=== PATIENT | female | born 1955 | race Caucasian/White ===

== ENCOUNTER 2016-09-25 14:34 | Emergency (ER) | payer OTHER ==
[~2016-09-25] VITALS: Ht 167.6 cm; Wt 100.0 kg
[2016-09-25 14:37] VITALS: BP 145/104; PULSE 102; RESP 15; TEMP 98; O2SAT 96
--- NOTE | 2016-09-25 14:48 | PD ---
Physical Exam Date Seen by Provider: September 25, 2016 Time Seen by Provider: 14:46 Narrative Pt states she fell yesterday injuring her left arm. Pt states her wrist, forearm , and elbow pain. She states she cant move her fingers well. Pain radiates to her neck. Pain is a 10/10 with movement. VSS, awaiting bed placement. Pt subsequently states she has chest pain radiating to her back and shoulder, diaphoresis., SOB. Data Data Last Documented VS Vital Signs Date Time Temp Pulse Resp B/P Pulse Ox O2 Delivery O2 Flow Rate FiO2 09/25/16 14:37 98.0 102 15 145/104 96 MDM Supervised Visit with TACOS: Keily Renee September 25, 2016 14:48
[2016-09-25] MEDS ORDERED: ACETAMINOPHEN/HYDROcodone 325 MG/10 MG TAB PO ONE (16:00)
--- NOTE | 2016-09-25 16:15 | RADRPT ---
EXAM DATE/TIME: 09/25/2016 15:27 [facility] COMPARISON: No previous studies available for comparison. INDICATIONS : Trauma, fall, left wrist pain, limited ROM MEDICAL HISTORY : None. SURGICAL HISTORY : None. ENCOUNTER: Initial ACUITY: 2 days PAIN SCORE: 8/10 LOCATION: Left Wrist FINDINGS: Three view examination of the left wrist demonstrates soft tissue swelling without dislocation, or fr acture. The carpal bones are in normal alignment. The joint spaces are maintained. Bony mineraliza tion is normal. CONCLUSION: Soft tissue swelling without fracture. Cortes Gifford MD on September 25, 2016 at 16:13 Board Certified Radiologist. This report was verified electronically.
--- NOTE | 2016-09-25 16:16 | RADRPT ---
EXAM DATE/TIME: 09/25/2016 15:29 [facility] COMPARISON: No previous studies available for comparison. INDICATIONS : Trauma, left arm pain, fall, limited ROM MEDICAL HISTORY : None. SURGICAL HISTORY : None. ENCOUNTER: Initial ACUITY: 2 days PAIN SCORE: 8/10 LOCATION: Left arm FINDINGS: Two view examination of the left forearm demonstrates no evidence of fracture or dislocation. Bony m ineralization is normal. The soft tissue structures are intact. CONCLUSION: No acute fracture. Cortes Gifford MD on September 25, 2016 at 16:13 Board Certified Radiologist. This report was verified electronically.
--- NOTE | 2016-09-25 16:17 | RADRPT ---
EXAM DATE/TIME: 09/25/2016 15:31 [facility] COMPARISON: No previous studies available for comparison. INDICATIONS : Trauma, left elbow pain, limited ROM MEDICAL HISTORY : None. SURGICAL HISTORY : None. ENCOUNTER: Initial ACUITY: 2 days PAIN SCORE: 8/10 LOCATION: Left elbow FINDINGS: Multiple view examination of the left elbow demonstrates abnormal articulation of the distal humerus with the olecranon with slight subluxation. Suspected fracture. There is a joint effusion. Soft tiss ue swelling Bony mineralization is normal. CONCLUSION: Subluxation of the elbow joint with effusion and suspected fracture. Cortes Gifford MD on September 25, 2016 at 16:14 Board Certified Radiologist. This report was verified electronically.
--- NOTE | 2016-09-25 16:19 | RADRPT ---
EXAM DATE/TIME: 09/25/2016 15:44 [facility] COMPARISON: No previous studies available for comparison. INDICATIONS : TRAUMA, LEFT SHOULDER PAIN, FALL, LIMTITED ROM MEDICAL HISTORY : None. SURGICAL HISTORY : None. ENCOUNTER: Initial ACUITY: 2 days PAIN SCORE: 8/10 LOCATION: Left SHOULDER FINDINGS: Two view examination of the left shoulder demonstrates no evidence of fracture or dislocation. There are degenerative changes. Bony mineralization is normal. CONCLUSION: Degenerative change without fracture. Cortes Gifford MD on September 25, 2016 at 16:16 Board Certified Radiologist. This report was verified electronically.
[2016-09-25 16:35] VITALS: BP 150/90; PULSE 87; RESP 15; O2SAT 96
--- NOTE | 2016-09-25 16:35 | RADRPT ---
EXAM DATE/TIME: 09/25/2016 15:23 [facility] COMPARISON: No previous studies available for comparison. INDICATIONS : Chest pain after falling MEDICAL HISTORY : None. SURGICAL HISTORY : None. ENCOUNTER: Initial ACUITY: 2 days PAIN SCORE: 5/10 LOCATION: Left chest FINDINGS: PA and lateral views of the chest demonstrate the lungs to be symmetrically aerated without evidence of mass, infiltrate or effusion. The cardiomediastinal contours are unremarkable. Osseous structure s are intact. CONCLUSION: 1. No active disease. Minimal basilar atelectasis or scarring. Van Baptiste MD on September 25, 2016 at 16:31 Board Certified Radiologist. This report was verified electronically.
[2016-09-25 16:36] LABS: AUTOMATED NEUTROPHIL # 5.3 TH/MM3 (1.8-7.7); BASOPHIL % 0.6 % (0.0-2.0); EOSINOPHIL # 0.2 TH/MM3 (0-0.4); HEMATOCRIT 40.1 % (35.0-46.0); HEMO FLAGS DIFF FINAL; LYMPH % 21.8 % (9.0-44.0); LYMPHOCYTE # 1.8 TH/MM3 (1.0-4.8); MEAN CELL VOLUME 90.1 FL (80.0-100.0); MEAN CORPUSCULAR HEMOGLOBIN 31.2 PG (27.0-34.0); MEAN CORPUSCULAR HGB CONC 34.6 % (32.0-36.0); MONO % 8.8 % (0.0-8.0); NEUT % 65.8 % (16.0-70.0); PLATELET COUNT 308 TH/MM3 (150-450); RED BLOOD COUNT 4.45 MIL/MM3 (4.00-5.30); RED CELL DISTRIBUTION WIDTH 13.1 % (11.6-17.2)
[2016-09-25 16:40] LABS: APTT (PATIENT) 28.5 SEC (24.3-30.1); PROTHROMBIN TIME - PATIENT 10.9 SEC (9.8-11.6)
[2016-09-25 16:44] LABS: ANION GAP 8 MEQ/L (5-15); BLOOD UREA NITROGEN 9 MG/DL (7-18); CHLORIDE 102 MEQ/L (98-107); GLOMERULAR FILTRATION RATE 54 ML/MIN (>89); MAGNESIUM 2.3 MG/DL (1.5-2.5); POTASSIUM 3.6 MEQ/L (3.5-5.1); SODIUM (NA) 138 MEQ/L (136-145)
[2016-09-25 16:47] LABS: CREATINE KINASE 301 U/L (26-192)
[2016-09-25 16:59] LABS: CKMB 1.1 NG/ML (0.5-3.6)
[2016-09-25] MEDS ORDERED: PROPOFOL 200 MG/20 ML AMP IV ONE (17:00)
--- NOTE | 2016-09-25 17:18 | PD ---
HPI Chief Complaint: Fall Time Seen by Provider: 17:14 Travel History International Travel<30 days: No Contact w/Intl Traveler<30days: No Traveled to known affect area: No History of Present Illness HPI 61-year-old female that presents to the ED for evaluation of fall. Per patient she tripped and fell yesterday. Per patient she has about ankle on the right side that sometimes gives out on her. Per patient she fell on the curb and landed on her left side. The patient most of her pain is in her shoulder and elbow. Patient states having bruising on her right hand that this doesn't really bother her at all. She also injured her left knee with a bruise in it but she is able to walk and has no difficulty with it. No back pain or neck pain. She also states that for the past any fracture she's been having midsternal pain on the chest that radiates to the back. Per patient this started after the fall. She denies any history of heart disease. No shortness of breath but does get worse with deep breaths. Allergy to penicillin. She has not taken anything for this. Per patient the pain especially on the elbow is 7 out of 10 and she has difficulty moving the elbow. She states that she has difficulty moving the finger secondary to the elbow. Denies any numbness, tilling, weakness. No blood thinners. No head injury or loss of consciousness reported. PFSH Past Surgical History Hysterectomy: Yes (PARTIAL) Social History Alcohol Use: No Tobacco Use: No Substance Use: No Allergies-Medications (Allergen,Severity, Reaction): Coded Allergies: Penicillin (Verified Allergy, Severe, SWELLING,VISUAL DISTURBANCE,CHEST PAIN, 09/25/16) Reported Meds & Prescriptions Reported Meds & Active Scripts Active Review of Systems Except as stated in HPI: all other systems reviewed are Neg Physical Exam Narrative GENERAL: SKIN: Warm and dry. HEAD: Atraumatic. Normocephalic. EYES: Pupils equal and round. No scleral icterus. No injection or drainage. ENT: No nasal bleeding or discharge. Mucous membranes pink and moist. Tongue is midline. No uvula deviation. NECK: Trachea midline. No JVD. CARDIOVASCULAR: Regular rate and rhythm. No murmurs, S3, S4. RESPIRATORY: No accessory muscle use. Clear to auscultation. Breath sounds equal bilaterally. GASTROINTESTINAL: Abdomen soft, non-tender, nondistended. Hepatic and splenic margins not palpable. MUSCULOSKELETAL: Extremities without clubbing, cyanosis, or edema. No obvious deformities. Full range of motion of the right upper and bilateral lower leg extremities. Patient does have an abrasion and swelling and bruising on the left knee But able to move it fully. Ambulating with no issues. 2+ pulses bilaterally in the upper and lower extremities. No lumbar, thoracic, cervical spine tenderness to palpation. Patient does have some deformity noted to the left elbow. Patient cannot completely flex or extend it without discomfort. No obvious bony deformity noted however. Full range of motion of the fingers. Good capillary refill. Sensation intact bilaterally. No obvious wrist deformity noted. No obvious shoulder deformity noted. Clavicle and scapula appear to be intact. NEUROLOGICAL: Awake and alert. No obvious cranial nerve deficits. Motor grossly within normal limits. Five out of 5 muscle strength in the arms and legs. Normal speech. PSYCHIATRIC: Appropriate mood and affect; insight and judgment normal. Data Data Last Documented VS Vital Signs Date Time Temp Pulse Resp B/P Pulse Ox O2 Delivery O2 Flow Rate FiO2 09/25/16 16:35 87 15 150/90 96 09/25/16 14:37 98.0 Orders Electrocardiogram (09/25/16 14:50) Shoulder, Limited(2vws) (09/25/16 ) Elbow, Complete (4 Vws) (09/25/16 ) Wrist, Complete ([id number]) (09/25/16 ) Forearm (2vws) (09/25/16 ) Chest, Pa & Lat (09/25/16 ) Basic Metabolic Panel (Bmp) (09/25/16 15:24) Ckmb (Isoenzyme) Profile (09/25/16 15:24) Complete Blood Count With Diff (09/25/16 15:24) Magnesium (Mg) (09/25/16 15:24) Prothrombin Time / Inr (Pt) (09/25/16 15:24) Act Partial Throm Time (Ptt) (09/25/16 15:24) Troponin I (09/25/16 15:24) Ice/Cold Pack (09/25/16 15:57) Acetamin-Hydrocod 325-10 Mg ([place] 10-32 (09/25/16 16:00) Ct Cerv Spine W/O Contrast (09/25/16 ) CKMB (09/25/16 16:10) CKMB% (09/25/16 16:10) Propofol 200 Mg/20 Ml Inj (Diprivan 200 (09/25/16 17:00) Splint Or Brace Apply/Monitor (09/25/16 16:49) Elbow, One View (09/25/16 ) Elbow, One View (09/25/16 ) Fiberglass Splint Elbow Adult (09/24/16 ) Sling Cradle Arm (09/24/16 ) Labs Laboratory Tests Test 09/25/16 16:10 White Blood Count 8.0 TH/MM3 Red Blood Count 4.45 MIL/MM3 Hemoglobin 13.9 GM/DL Hematocrit 40.1 % Mean Corpuscular Volume 90.1 FL Mean Corpuscular Hemoglobin 31.2 PG Mean Corpuscular Hemoglobin 34.6 % Concent Red Cell Distribution Width 13.1 % Platelet Count 308 TH/MM3 Mean Platelet Volume 7.9 FL Neutrophils (%) (Auto) 65.8 % Lymphocytes (%) (Auto) 21.8 % Monocytes (%) (Auto) 8.8 % Eosinophils (%) (Auto) 3.0 % Basophils (%) (Auto) 0.6 % Neutrophils # (Auto) 5.3 TH/MM3 Lymphocytes # (Auto) 1.8 TH/MM3 Monocytes # (Auto) 0.7 TH/MM3 Eosinophils # (Auto) 0.2 TH/MM3 Basophils # (Auto) 0.0 TH/MM3 CBC Comment DIFF FINAL Differential Comment Prothrombin Time 10.9 SEC Prothromb Time International 1.0 RATIO Ratio Activated Partial 28.5 SEC Thromboplast Time Sodium Level 138 MEQ/L Potassium Level 3.6 MEQ/L Chloride Level 102 MEQ/L Carbon Dioxide Level 28.0 MEQ/L Anion Gap 8 MEQ/L Blood Urea Nitrogen 9 MG/DL Creatinine 1.04 MG/DL Estimat Glomerular Filtration 54 ML/MIN Rate Random Glucose 161 MG/DL Calcium Level 9.4 MG/DL Magnesium Level 2.3 MG/DL Total Creatine Kinase 301 U/L Creatine Kinase MB 1.1 NG/ML Creatine Kinase MB % 0.4 % Troponin I LESS THAN 0.02 NG/ML MDM Medical Decision Making Medical Screen Exam Complete: Yes Emergency Medical Condition: Yes Medical Record Reviewed: Yes Interpretation(s) Last Impressions Wrist X-Ray 09/25/16 0000 Signed Impressions: Service Date/Time: September 15:27 - CONCLUSION: Soft tissue swelling without fracture. Cortes Gifford MD Shoulder X-Ray 09/25/16 0000 Signed Impressions: Service Date/Time: September 15:44 - CONCLUSION: Degenerative change without fracture. Cortes Gifford MD Radius/Ulna X-Ray 09/25/16 Signed Impressions: Service Date/Time: September 15:29 - CONCLUSION: No acute fracture. Cortes Gifford MD Elbow X-Ray 09/25/16 Signed Impressions: Service Date/Time: September 15:31 - CONCLUSION: Subluxation of the elbow joint with effusion and suspected fracture. Cortes Gifford MD Chest X-Ray 09/25/16 Signed Impressions: Service Date/Time: September 15:23 - CONCLUSION: 1. No active disease. Minimal basilar atelectasis or scarring. Van Baptiste MD CBC & BMP Diagram 09/25/16 16:10 Differential Diagnosis Fall versus fracture versus dislocation versus contusion versus bruise Narrative Course 61-year-old female that presents to the ED for evaluation of fall. Patient was properly examined and was found to have signs and symptoms consistent with appears to be fall. Concerning for bony injuries. Labs and imaging done and showed subluxation and fracture of the left elbow. Case was discussed in my attending who recommends speaking with orthopedic surgeon. I spoke with Jayson LEONARD for ortho who recommends reduction. This was discussed in my attending (Dr Tay) who with the help of Dr. Chakraborty Was Able to Reduce the Fracture. Patient Was Put in Splint. X-Rays Were Done and were positive for the reduction. Case was again discussed with HORACIO for orthopedic surgeon who agrees to discharge and follow-up in the office. Patient was reassured. Patient will be discharged home with splint, Lortab and diclofenac sodium. Told to follow up with PCP. See ED for any worsening symptoms. Patient was given information for Dr. Garcia's office. Patient agrees with plan. Diagnosis Primary Impression: Elbow subluxation, left Qualified Code: S53.102A - Elbow subluxation, left, initial encounter Additional Impressions: Elbow fracture, left Qualified Code: S42.402A - Elbow fracture, left, closed, initial encounter Hand contusion Qualified Code: S60.221A - Contusion of right hand, initial encounter Contusion of knee, left Contusion of chest Qualified Code: S20.212A - Contusion of chest, left, initial encounter Referrals: Andriy Garcia MD Patient Instructions: General Instructions, Narcotic given in the ED Additional Instructions: Take medications as prescribed. Follow-up with PCP or ortho. See ED for any worsening symptoms. Do not drink or drive while taking pain medication. Apply ice or heat as needed for pain Med/Other Pt SpecificInfo: Prescription(s) given Disposition: 01 DISCHARGE HOME Condition: Bryan Deluca September 25, 2016 17:18
--- NOTE | 2016-09-25 17:25 | RADRPT ---
EXAM DATE/TIME: 09/25/2016 16:13 [facility] COMPARISON: No previous studies available for comparison. INDICATIONS : Fall, left side neck pain. RADIATION DOSE: 24.13 CTDIvol (mGy) MEDICAL HISTORY : None SURGICAL HISTORY : Hysterectomy. ENCOUNTER: Initial ACUITY: 1 day PAIN SCALE: 10/10 LOCATION: Left neck TECHNIQUE: Volumetric scanning of the cervical spine was performed. Multiplanar reconstructions in the sagittal, coronal and oblique axial planes were performed. Using automated exposure control and adjustment o f the mA and/or kV according to patient size, radiation dose was kept as low as reasonably achievable to obtain optimal diagnostic quality images. FINDINGS: The sagittal and coronal reconstructions demonstrate reversal of normal lordotic curvature with multi level mild degenerative disc disease most prominent at C4-5 through C6-7 with some loss of height and small uncovertebral spurs. There is a mild grade 1 anterolisthesis at C2 on 3. Vertebral body heig hts are maintained without fracture. C2-C3: The bony spinal canal is normal in size. No evidence of disc bulge or herniation. The neural forami na are bilaterally patent. C3-C4: The bony spinal canal is normal in size. No evidence of disc bulge or herniation. The neural forami na are bilaterally patent. C4-C5: Mild uncovertebral ridging with some narrowing of the right neural foramina which could be severe venita ugh to compromise the right C5 nerve root. Spinal canal and left neural foramina are adequate. C5-C6: Left-sided facet height hypertrophy but the spinal canal and neural foramina are patent. C6-C7: The bony spinal canal is normal in size. No evidence of disc bulge or herniation. The neural forami na are bilaterally patent. C7-T1: The bony spinal canal is normal in size. No evidence of disc bulge or herniation. The neural forami na are bilaterally patent. CONCLUSION: 1. Reversal of the normal lordotic curvature with mild grade I anterolisthesis C2 on 3 which may be positional. 2. Degenerative disc disease most prominent from C4-5 through C6-7 with loss of disc height and mini mal uncovertebral ridging. 3. Uncovertebral ridging narrows the right neural foramina at C4-5 and may compromise the right C5 n erve root. 4. Facet hypertrophy leftward at C5-6 but the spinal canal and neural foramina appear to be adequate. Spinal canal and neural foramina are adequate at all remaining levels. 5. No acute fracture. Tree Sanford MD on September 25, 2016 at 17:06 Board Certified Radiologist. This report was verified electronically.
--- NOTE | 2016-09-25 17:36 | PD ---
Physical Exam Date Seen by Provider: September 25, 2016 Data Data Last Documented VS Vital Signs Date Time Temp Pulse Resp B/P Pulse Ox O2 Delivery O2 Flow Rate FiO2 09/25/16 16:35 87 15 150/90 96 09/25/16 14:37 98.0 Orders Electrocardiogram (09/25/16 14:50) Shoulder, Limited(2vws) (09/25/16 ) Elbow, Complete (4 Vws) (09/25/16 ) Wrist, Complete (Sdt0jth) (09/25/16 ) Forearm (2vws) (09/25/16 ) Chest, Pa & Lat (09/25/16 ) Basic Metabolic Panel (Bmp) (09/25/16 15:24) Ckmb (Isoenzyme) Profile (09/25/16 15:24) Complete Blood Count With Diff (09/25/16 15:24) Magnesium (Mg) (09/25/16 15:24) Prothrombin Time / Inr (Pt) (09/25/16 15:24) Act Partial Throm Time (Ptt) (09/25/16 15:24) Troponin I (09/25/16 15:24) Ice/Cold Pack (09/25/16 15:57) Acetamin-Hydrocod 325-10 Mg ([place] 10-32 (09/25/16 16:00) Ct Cerv Spine W/O Contrast (09/25/16 ) CKMB (09/25/16 16:10) CKMB% (09/25/16 16:10) Propofol 200 Mg/20 Ml Inj (Diprivan 200 (09/25/16 17:00) Splint Or Brace Apply/Monitor (09/25/16 16:49) Elbow, Limited (Ap&Lat) (09/25/16 ) Elbow, Limited (Ap&Lat) (09/25/16 ) Labs Laboratory Tests Test 09/25/16 16:10 White Blood Count 8.0 TH/MM3 Red Blood Count 4.45 MIL/MM3 Hemoglobin 13.9 GM/DL Hematocrit 40.1 % Mean Corpuscular Volume 90.1 FL Mean Corpuscular Hemoglobin 31.2 PG Mean Corpuscular Hemoglobin 34.6 % Concent Red Cell Distribution Width 13.1 % Platelet Count 308 TH/MM3 Mean Platelet Volume 7.9 FL Neutrophils (%) (Auto) 65.8 % Lymphocytes (%) (Auto) 21.8 % Monocytes (%) (Auto) 8.8 % Eosinophils (%) (Auto) 3.0 % Basophils (%) (Auto) 0.6 % Neutrophils # (Auto) 5.3 TH/MM3 Lymphocytes # (Auto) 1.8 TH/MM3 Monocytes # (Auto) 0.7 TH/MM3 Eosinophils # (Auto) 0.2 TH/MM3 Basophils # (Auto) 0.0 TH/MM3 CBC Comment DIFF FINAL Differential Comment Prothrombin Time 10.9 SEC Prothromb Time International 1.0 RATIO Ratio Activated Partial 28.5 SEC Thromboplast Time Sodium Level 138 MEQ/L Potassium Level 3.6 MEQ/L Chloride Level 102 MEQ/L Carbon Dioxide Level 28.0 MEQ/L Anion Gap 8 MEQ/L Blood Urea Nitrogen 9 MG/DL Creatinine 1.04 MG/DL Estimat Glomerular Filtration 54 ML/MIN Rate Random Glucose 161 MG/DL Calcium Level 9.4 MG/DL Magnesium Level 2.3 MG/DL Total Creatine Kinase 301 U/L Creatine Kinase MB 1.1 NG/ML Creatine Kinase MB % 0.4 % Troponin I LESS THAN 0.02 NG/ML [facility] Medical Record Reviewed: Yes Supervised Visit with TACOS: Yes Narrative Course I was asked by to assist with conscious sedation for left elbow reduction. Please see procedure note Procedures Procedure Narrative After the risks and benefits were discussed the following procedure was performed: MODERATE SEDATION: The patient was placed on a cardiac tech and pulse oximetry. An ambu bag and suction was immediately available at bedside. The patient was monitored by the nurse. Oxygen saturation , heart rate and blood pressure were monitored. Procedural sedation was acheived using 100mg of propofol. The patient was observed until awake and alert. Procedural Sedation time in attendance was 20 minutes. Aminta Chakraborty DO September 25, 2016 17:36
--- NOTE | 2016-09-25 17:54 | RADRPT ---
EXAM DATE/TIME: 09/25/2016 17:40 [facility] COMPARISON: No previous studies available for comparison. INDICATIONS : Post reduction left elbow. MEDICAL HISTORY : None. SURGICAL HISTORY : None. ENCOUNTER: Initial ACUITY: 1 day PAIN SCORE: 0/10 LOCATION: Left elbow FINDINGS: Single view of the elbow was performed. There is reduction of previous dislocation. Positive joint e ffusion. Overlying cast. CONCLUSION: Reduction of previous dislocation with joint effusion. Van Baptiste MD on September 25, 2016 at 17:51 Board Certified Radiologist. This report was verified electronically.
--- NOTE | 2016-09-25 17:54 | EKG ---
Date Performed: 09/25/2016 Time Performed: 15:00:06 PTAGE: 61 years EKG: Sinus rhythm NORMAL ECG COMPARED TO PRIOR ELECTROCARDIOGRAM, Rate has increased. PREVIOUS TRACING : 07/20/2006 11.14 DOCTOR: Wilson Ordaz Interpretating Date/Time 09/25/2016 17:53:32
[2016-09-25 18:16] VITALS: O2SAT 97
--- NOTE | 2016-09-25 18:18 | RADRPT ---
EXAM DATE/TIME: 09/25/2016 18:09 [facility] COMPARISON: ELBOW LEFT COMPLETE (4 VWS), September 25, 2016, 15:31. ELBOW LEFT (1 VW), September 25, 2016, 17:40. INDICATIONS : Post reduction left elbow. MEDICAL HISTORY : None. SURGICAL HISTORY : None. ENCOUNTER: Subsequent ACUITY: 1 day PAIN SCORE: 0/10 LOCATION: Left elbow FINDINGS: Bony detail is obscured by cast/splint material. Alignment is grossly satisfactory. CONCLUSION: Satisfactory reduction appearance. Jose Bland MD on September 25, 2016 at 18:15 Board Certified Radiologist. This report was verified electronically.
--- NOTE | 2016-09-25 18:19 | PD ---
Physical Exam Narrative GENERAL: Well-nourished, well-developed patient. SKIN: Warm and dry. HEAD: Normocephalic and atraumatic. EYES: No injection or drainage. ENT: No nasal drainage noted. NECK: Supple, trachea midline. CARDIOVASCULAR: Regular rate and rhythm RESPIRATORY: No increased effort. No accessory muscle use. EXTREMITIES: Pain with palpation of left elbow, neurovascularly intact, no lacerations over, compartments soft. NEUROLOGICAL: Awake and alert. Motor and sensory grossly within normal limits. Normal speech. Data Data Last Documented VS Vital Signs Date Time Temp Pulse Resp B/P Pulse Ox O2 Delivery O2 Flow Rate FiO2 09/25/16 18:16 97 6.00 09/25/16 16:35 87 15 150/90 09/25/16 14:37 98.0 Orders Electrocardiogram (09/25/16 14:50) Shoulder, Limited(2vws) (09/25/16 ) Elbow, Complete (4 Vws) (09/25/16 ) Wrist, Complete ([id number]) (09/25/16 ) Forearm (2vws) (09/25/16 ) Chest, Pa & Lat (09/25/16 ) Basic Metabolic Panel (Bmp) (09/25/16 15:24) Ckmb (Isoenzyme) Profile (09/25/16 15:24) Complete Blood Count With Diff (09/25/16 15:24) Magnesium (Mg) (09/25/16 15:24) Prothrombin Time / Inr (Pt) (09/25/16 15:24) Act Partial Throm Time (Ptt) (09/25/16 15:24) Troponin I (09/25/16 15:24) Ice/Cold Pack (09/25/16 15:57) Acetamin-Hydrocod 325-10 Mg ([place] 10-32 (09/25/16 16:00) Ct Cerv Spine W/O Contrast (09/25/16 ) CKMB (09/25/16 16:10) CKMB% (09/25/16 16:10) Propofol 200 Mg/20 Ml Inj (Diprivan 200 (09/25/16 17:00) Splint Or Brace Apply/Monitor (09/25/16 16:49) Elbow, One View (09/25/16 ) Elbow, One View (09/25/16 ) Fiberglass Splint Elbow Adult (09/24/16 ) Sling Cradle Arm (09/24/16 ) Fiberglass Splint Elbow Adult (09/25/16 ) Sling Cradle Arm (09/25/16 ) Labs Laboratory Tests Test 09/25/16 16:10 White Blood Count 8.0 TH/MM3 Red Blood Count 4.45 MIL/MM3 Hemoglobin 13.9 GM/DL Hematocrit 40.1 % Mean Corpuscular Volume 90.1 FL Mean Corpuscular Hemoglobin 31.2 PG Mean Corpuscular Hemoglobin 34.6 % Concent Red Cell Distribution Width 13.1 % Platelet Count 308 TH/MM3 Mean Platelet Volume 7.9 FL Neutrophils (%) (Auto) 65.8 % Lymphocytes (%) (Auto) 21.8 % Monocytes (%) (Auto) 8.8 % Eosinophils (%) (Auto) 3.0 % Basophils (%) (Auto) 0.6 % Neutrophils # (Auto) 5.3 TH/MM3 Lymphocytes # (Auto) 1.8 TH/MM3 Monocytes # (Auto) 0.7 TH/MM3 Eosinophils # (Auto) 0.2 TH/MM3 Basophils # (Auto) 0.0 TH/MM3 CBC Comment DIFF FINAL Differential Comment Prothrombin Time 10.9 SEC Prothromb Time International 1.0 RATIO Ratio Activated Partial 28.5 SEC Thromboplast Time Sodium Level 138 MEQ/L Potassium Level 3.6 MEQ/L Chloride Level 102 MEQ/L Carbon Dioxide Level 28.0 MEQ/L Anion Gap 8 MEQ/L Blood Urea Nitrogen 9 MG/DL Creatinine 1.04 MG/DL Estimat Glomerular Filtration 54 ML/MIN Rate Random Glucose 161 MG/DL Calcium Level 9.4 MG/DL Magnesium Level 2.3 MG/DL Total Creatine Kinase 301 U/L Creatine Kinase MB 1.1 NG/ML Creatine Kinase MB % 0.4 % Troponin I LESS THAN 0.02 NG/ML MDM Supervised Visit with TACOS: Yes Interpretation(s) CBC & BMP Diagram 09/25/16 16:10 Last 24 hours Impressions Wrist X-Ray 09/25/16 0000 Signed Impressions: Service Date/Time: September 15:27 - CONCLUSION: Soft tissue swelling without fracture. Cortes Gifford MD Shoulder X-Ray 09/25/16 0000 Signed Impressions: Service Date/Time: September 15:44 - CONCLUSION: Degenerative change without fracture. Cortes Gifford MD Radius/Ulna X-Ray 09/25/16 0000 Signed Impressions: Service Date/Time: September 15:29 - CONCLUSION: No acute fracture. Cortes Gifford MD Elbow X-Ray 09/25/16 0000 Signed Impressions: Service Date/Time: September 17:40 - CONCLUSION: Reduction of previous dislocation with joint effusion. Van Baptiste MD Elbow X-Ray 09/25/16 0000 Signed Impressions: Service Date/Time: September 15:31 - CONCLUSION: Subluxation of the elbow joint with effusion and suspected fracture. Cortes Gifford MD Chest X-Ray 09/25/16 0000 Signed Impressions: Service Date/Time: September 15:23 - CONCLUSION: 1. No active disease. Minimal basilar atelectasis or scarring. Van Baptiste MD Narrative Course I, Dr. tay, have reviewed the advance practice practitioner's documentation and am in agreement, met with the patient face to face, made the diagnosis, and the medical decision making was done by me. *My assessment and Findings: 61-year-old female status post trip and fall yesterday. Left elbow subluxation. This was reduced after discussion with orthopedic physician kailyn, x-rays show successful placement post reduction. Will be discharged for close outpatient follow-up Procedures Procedure Narrative After the risks and benefits were discussed the following procedure was performed: With conscious sedation using propofol with Dr. Chakraborty, reduction of left elbow with traction countertraction and supination, was neurovascularly intact, x-ray checked, patient tolerated procedure. Diagnosis Primary Impression: Elbow subluxation, left Qualified Code: S53.102A - Elbow subluxation, left, initial encounter Additional Impression: Elbow fracture, left Qualified Code: S42.402A - Elbow fracture, left, closed, initial encounter Reyna Tay MD September 25, 2016 18:19
[2016-09-25] MEDS ORDERED: DICL75TA PO (18:29)
[2016-09-25] MEDS ORDERED: HYDR-3533 PO (18:29)
[2016-09-25 20:45] VITALS: BP 134/78
== END 2016-09-25 21:14 | disposition home or self-care (01) ==
LOC: NEPE 14:34
DX: S42.402A Unspecified fracture of lower end of left humerus, initial encounter for closed fracture (principal); S60.221A Contusion of right hand, initial encounter; S53.102A Unspecified subluxation of left ulnohumeral joint, initial encounter; S80.02XA Contusion of left knee, initial encounter; S20.219A Contusion of unspecified front wall of thorax, initial encounter; W10.1XXA Fall (on)(from) sidewalk curb, initial encounter; Y92.89 Other specified places as the place of occurrence of the external cause; Y99.8 Other external cause status
CPT/HCPCS: 24600; 71020; 72125; 73030; 73080; 73090; 73110; 80048; 82550; 82552; 83735; 84484; 85025; 85610; 85730; 93005; 96374; 99152; 99153